=== PATIENT | female | born 1955 | race Caucasian/White ===

== ENCOUNTER 2025-05-22 09:59 | Emergency (ER) | payer MEDICARE, OTHER, SELFPAY ==
[2025-05-22 10:00] VITALS: BP 116/66
--- NOTE | 2025-05-22 10:33 | ED.MUSCINJ ---
HPI-Injury
General
Chief Complaint: Musculo-Skeletal Complaint
Source: patient
Exam Limitations: none
Time Seen by Provider: 05/22/25 10:11
History of Present Illness-Injury
Initial Injury comments:
69-year-old female presents complaining of right knee pain and swelling. This is gotten worse over the past week. Today she felt a loud pop in the knee which caused her to be lightheaded. Since then she has had difficulty bearing weight on the
knee. 1 week ago she was sitting on the floor awkwardly refinishing a chest of drawers and felt that she twisted her knee upon standing at that time. She has been able to deal with the discomfort however today the pain worsened. No fevers.
Phy Exam
Physical Exam
Physical Exam:
General: Well-appearing female in no acute respiratory distress
Musculoskeletal exam: Right knee with mild generalized soft tissue swelling no significant intra-articular effusion. The patient is tender over the posterior medial joint line. She has increased pain with rotation of the tibia ligament exam stable
Skin is intact without erythema or warmth
Injury Course
Orders/Labs/Results
Orders:
Orders
05/22/25 10:04
CR Knee- Right 4 Or More View* Urgent
Comment:
Reason For Exam: Injury
05/22/25 10:40
Knee Immobilizer Right-Treatme ONCE
MDM/Problems Addressed
Differential Diagnosis Includes:
Left knee pain. Consider DJD versus soft tissue injury versus fracture no concern for septic arthritis
X-rays right knee pending
*Pulse Oximetry
SaO2: 99
Oxygen Mode of Delivery: Room air
Patient hypoxic: no
*Critical Care Note
Total Time (30-74mins, 75-104mins- exclusive of procedures): Not Applicable
Update Note
Update Note:
X-rays negative for acute bony abnormality. Suspect knee sprain possible meniscal injury. Patient placed in knee immobilizer recommended rest and anti-inflammatories. She is from [place] and plans to follow-up with orthopedics upon her return
home
ED Attending Note
-
Portions of this chart may have been created with voice recognition software.� Occasional wrong word or��sound alike� substitutions may have occurred due to the inherent limitations of voice recognition software.
Discharge Plan
Departure
Patient Disposition: Home (Routine Discharge)
Date of Disposition: 05/22/25
Time of Disposition: 10:41
Patient with high blood pressure during this ER visit?: No
Discharge Problem:
Knee sprain
Instructions: Muscle and Bone Pain (DC)
Activity Restrictions/Additional Instructions:
Use brace for support when ambulating. Elevate for swelling. You may use ibuprofen or Tylenol for pain. Follow-up with your orthopedic doctor upon return home
Discharge Date and Time
Print Language: [place]
== END 2025-05-22 12:10 | disposition home or self-care (01) ==
LOC: EMR 09:59
PROVIDERS: EMERGENCY PHYSICIAN Emergency Medicine
DX: S83.91XA Sprain of unspecified site of right knee, initial encounter (principal); X50.1XXA Overexertion from prolonged static or awkward postures, initial encounter
CPT/HCPCS: 29505; 99283; 73564